=== PATIENT | male | born 1990 | race Caucasian/White ===

== ENCOUNTER 2019-04-28 10:11 | Outpatient (CLI) | payer SELFPAY ==
[2019-05-02 14:48] LABS: COVID-19 RT-PCR Result Not Detected
== END 2019-04-28 10:31 ==
DX: Z20.828 Contact with and (suspected) exposure to other viral communicable diseases (principal); Z11.59 Encounter for screening for other viral diseases
CPT/HCPCS: 87449; U0003

== ENCOUNTER 2019-12-22 15:24 | Outpatient (REF) | payer SELFPAY ==
[2019-12-27 00:47] LABS: SARS-CoV-2 RNA Undetected (Undetected); SARS-CoV-2 Specimen Source Nasal
== END 2019-12-22 15:44 ==
LOC: NCHCN 15:24
PROVIDERS: Visit Provider Family Medicine
DX: R09.81 Nasal congestion (principal); Z11.59 Encounter for screening for other viral diseases
CPT/HCPCS: U0003

== ENCOUNTER 2022-06-12 18:00 | Emergency (ER) | payer MEDICAID, SELFPAY ==
[2022-06-12 18:06] VITALS: BP 117/65; PULSE 77; TEMP 37; O2SAT 95
--- NOTE | 2022-06-12 19:00 | DI.RAD_ITS ---
Exam(s) XR RIBS LT W PA LAT CHEST EXAM: XR RIBS LT W PA LAT CHEST CLINICAL HISTORY: Left side rib pain. TECHNIQUE: 2D digital imaging was performed. COMPARISON: No exams were available for comparison FINDINGS: 3 views left ribs: No evidence of obvious left rib fracture. No radiopaque foreign body. No rib lesions Chest x-ray-two views: Heart size normal. Mediastinum not widened. Thoracic scoliosis convex right noted. Lungs are clear . No contusions. No pneumothorax. No pleural effusions. IMPRESSION: No obvious left rib fractures. No acute pulmonary findings. Scoliosis incidentally noted. DATA REPOSITORY: RADIATION DOSE DELIVERED:
--- NOTE | 2022-06-12 19:12 | ED.GENADUL_ITS ---
Discharge Plan Disposition Patient Disposition: Home Condition: Stable Discharge Details Clinical Impression: Musculoskeletal strain Primary Care Provider: Unknown,Unknown ED Provider: Apurva Marin Home Meds and New Rx's Prescriptions: New cyclobenzaprine 10 mg tablet 10 mg PO TID PRN (Reason: muscle spasm) Qty: 10 0RF Rx Instructions: Take 1 tablet up to 3 times daily as needed for muscle pain lidocaine 5 % adhesive patch,medicated 1 patch topical DAILY Qty: 15 0RF Rx Instructions: leave on most painful area for up to 12 hrs Discharge Instructions Instructions: Back Pain (ED) Additional Instructions: Please take the muscle relaxers as prescribed. You may use lidocaine patches as well. Please follow-up with your primary care provider this pain may be related to the scoliosis. No evidence of broken bones on the x-ray or any acute abnormality other than the scoliosis. Follow up with primary care provider in 3-5 days. Return to ED sooner if any worsening or concerns. Increase oral fluids. Please take Tylenol or Ibuprofen with food every 4-6 hours as needed for pain and swelling. You are placed on a care management list to help you establish primary care provider. Discharge Data Discharge Date/Time-TO BE ENTERED AT DEPARTURE: 06/12/22 20:57 Medical Decision Making 32-year-old male presents to the ER with a chief complaint of left-sided rib pain and left scapular pain x3 weeks. No significant known injury. However he does report that he dislocated his shoulder few weeks ago. He has been coughing. Does have a history of scoliosis and irritable bowel syndrome. He did take Toradol prior to arrival. X-ray rib series ordered, are within normal limits no acute bony or pulmonary abnormality. I did discuss the results with patient. 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 Discussed follow-up with PCP or follow-up with his specialist. Meantime patient is given a muscle relaxer instructed on ice he Tylenol and ibuprofen as needed. He verbalized understanding. Patient was also given lidocaine patch. This text was generated using [employer] system, please disregard any oddities of phrase or misspellings. Imaging Data Radiologic Study: Imaging: X-Ray Radiologist's impression: TECHNIQUE: Imaging protocol: Radiologic exam of the left ribs. Views: 2 views. COMPARISON: No relevant prior studies available. FINDINGS: Bones/joints: Normal. Soft tissues: Normal. IMPRESSION: No acute findings. TECHNIQUE: Imaging protocol: Radiologic exam of the chest. Views: 2 views. COMPARISON: No relevant prior studies available. FINDINGS: Lungs: Normal. Pleural spaces: Unremarkable. No pleural effusion. No pneumothorax. Heart/Mediastinum: Normal. Bones/joints: Moderate dextroscoliosis of the thoracic spine. IMPRESSION: No acute cardiopulmonary abnormality. HPI General Mode of arrival: ambulatory . Date/Time Provider Initiated Documentation: 06/12/22 18:18 . Limitations to Documentation: no limitations . Information obtained by: patient, RN notes reviewed and old records reviewed . HPI Narrative: 32-year-old male presents to the ER with a chief complaint of left-sided rib pain and left scapular pain x3 weeks. No significant known injury. However he does report that he dislocated his shoulder few weeks ago. He has been coughing. Does have a history of scoliosis and irritable bowel syndrome. He did take Toradol prior to arrival. Related Data Home Medications Medication Instructions Recorded Confirmed cyclobenzaprine 10 mg tablet 10 mg PO TID PRN muscle spasm #10 06/12/22 tabs lidocaine 5 % topical patch 1 patch topical DAILY #15 ea 06/12/22 Previous Rx's Medication Instructions Recorded cyclobenzaprine 10 mg tablet 10 mg PO TID PRN muscle spasm #10 06/12/22 tabs lidocaine 5 % topical patch 1 patch topical DAILY #15 ea 06/12/22 Allergies Allergy/AdvReac Type Severity Reaction Status Date / Time No Known Allergies Allergy Unverified 06/12/22 18:14 General Stated Complaint: Nk/Back Pain DAYANNA: 4 Review of Systems All systems reviewed & are unremarkable except as noted in HPI and below Musculoskeletal Musculoskeletal: Reports as per HPI and Reports back pain PFSH All Active Problems (Updated 06/12/22 @ 20:44 by Apurva Marin NP) Musculoskeletal strain (Acute) Medical History Irritable bowel syndrome Scoliosis Social History Smoking/Tobacco Use Status: Current every day Smoking risk assessment performed?: Yes Alcohol Intake: never Substance use type: marijuana Do you feel safe at home: Yes Do you feel safe in your relationship?: Yes Exam Narrative Exam Narrative: Constitutional: Alert and oriented x3. Appears stated age. Normal body habitus. Head: Normocephalic, no trauma. Eyes: Pupils PERRL, Red reflex noted, EOM's intact. Eyelids symmetrical without lesions, discharge, or swelling. Chest: RRR, Normal S1, S2, distal pulses intact. Resp: Lungs clear to auscultation bilaterally, no wheezes, rales, or rhonchi. Abdomen: Soft, non-distended, Normoactive bowel sounds all 4 quads. Musculoskeletal: Normal gait, 5/5 strength to all four extremities. Skin: No suspicious rashes or lesions. Capillary refill less than 2 sec. Course Vital Signs Vital signs: Vital Signs Temperature 37 C 06/12/22 18:06 Pulse 77 06/12/22 18:06 Blood Pressure 117/65 06/12/22 18:06 Pulse Oximetry 95 06/12/22 18:06 Temperature 37 C 06/12/22 18:06 Temperature Source Temporal Artery Scan 06/12/22 18:06 Pulse 77 06/12/22 18:06 Respiratory Effort Normal, Non-Labored 06/12/22 18:12 Blood Pressure 117/65 06/12/22 18:06 Blood Pressure Position Sitting 06/12/22 18:06 Pulse Oximetry 95 06/12/22 18:06 Oxygen Delivery Method Room Air 06/12/22 18:06 Oxygen Flow Rate 0 06/12/22 18:06 Pain Level 7 06/12/22 18:06
[2022-06-12] MEDS: Acetaminophen 325 MG TAB 650 MG PO (20:16)
[2022-06-12] MEDS: Cyclobenzaprine 10 MG TAB PO (20:16)
[2022-06-12] MEDS: Lidocaine 5% Patch 1 PATCH TP (20:17)
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
[2022-06-12 20:54] VITALS: BP 118/73; PULSE 76; RESP 18; O2SAT 93
--- NOTE | 2022-06-12 21:07 | NUR.NOTE ---
Referral to Care Management to establish pcp routinely. Nursing Note:
--- NOTE | 2022-06-13 14:19 | PDOC.ERCMACT ---
- If Service Date Differs Date of service: 06/13/22 Time of Service: 14:19 Care Management Activity Note Jaylon is seen in the ED for scoliosis. At the request of ED provider, WALLY coordinates a referral to Karen Cuellar MD, of [facility], t-doc, to assist Jaylon in establishing care with a PCP. He has Medicaid for insurance.
== END 2022-06-12 20:57 | disposition home or self-care (01) ==
PROVIDERS: Emergency Provider Registered Nurse Emergency
DX: M41.9 Scoliosis, unspecified (principal); S29.012A Strain of muscle and tendon of back wall of thorax, initial encounter
CPT/HCPCS: 99283; 71046; 71100; 99284